=== PATIENT | male | born 1985 | race American Indian/Alaskan Native ===

== ENCOUNTER 2018-03-23 20:40 | Emergency (ER) | payer MEDICAID, OTHER, SELFPAY ==
[2018-03-23 20:44] VITALS: BP 128/73; PULSE 113; RESP 20; TEMP 36.3; O2SAT 99
--- NOTE | 2018-03-23 20:46 | ED_ITS ---
HPI - Overdose General Chief Complaint: Toxicology Problem Stated Complaint: Overdose Time Seen by Provider: 03/23/18 20:50 Source: EMS Mode of arrival: EMS History of Present Illness HPI Narrative: Patient is a 33-year-old male who presents after overdose. He does have a history of heroin used. Please to give him full nasal Narcan, EMS and gave him half a dose. He is now shaking cold awake alert and talking. Adamantly denies any drug use. Previous overdose noted 11/02/2017 he similar situation Related Data Home Medications Medication Instructions Recorded Confirmed No Known Home Medications 11/02/17 11/02/17 Allergies Allergy/AdvReac Type Severity Reaction Status Date / Time tramadol Allergy Intermediate Hives Verified 11/02/17 19:02 Review of Systems Review of Systems GENERAL: + chills denies any fever HEENT: Denies sinus pain, ear pain, sore throat, difficulty swallowing, neck pain RESPIRATORY: Denies dyspnea, cough, wheezing, hemoptysis, sputum. CARDIOVASCULAR: Denies chest pain, palpitations, orthopnea, edema GASTROINTESTINAL: Denies nausea, vomiting, abdominal pain, diarrhea, constipation, melena. : Denies dysuria, frequency, incontinence, hematuria, urinary retention, flank pain. MUSCULOSKELETAL: Denies weakness, joint pain, or bony pain SKIN: No rash, no erythema, no pruritus NEUROLOGIC: Shaking PSYCHIATRIC: No concerning psychosocial issues. 12 point review of systems is negative except for those stated above and HPI PFSH Social History Smoking Status: Current some day smoker Exam Initial Vital Signs Initial Vital Signs: Vital Signs Temperature 97.4 F L 03/23/18 20:44 Pulse Rate 113 H 03/23/18 20:44 Respiratory Rate 20 03/23/18 20:44 Blood Pressure 128/73 03/23/18 20:44 Pulse Oximetry 99 03/23/18 20:44 GENERAL: Awake alert shaking HEENT: Head atraumatic,EOMI, pupils reactive, face symmetric, CARDIOVASCULAR: Regular rate and rhythm without murmurs, rubs or gallops. RESPIRATORY: Breath sounds equal bilaterally, no wheezes rales or rhonchi. ABDOMEN: Soft, nontender. Normoactive bowel sounds all 4 quadrants. No guarding or rebound. EXTREMITIES: Normal range of motion, no clubbing or edema. Neurovascularly intact NEUROLOGICAL: Awake alert still mildly confused following commands shivering SKIN: No track alfaro Course Orders Ordered: ED Orders 03/23/18 21:38 Acetaminophen Stat Complete Blood Count AUTO DIFF Stat Comprehensive Metabolic Panel Stat Ethanol (ETOH) Stat Salicylate Stat Vital Signs - 8 hr 03/23/18 21:30 03/24/18 00:20 Pulse Rate 103 H 88 Respiratory Rate 14 21 Blood Pressure 110/69 Blood Pressure [Right Arm] 119/75 Pulse Oximetry 95 99 MDM - Overdose Lab Data Attestation: I reviewed the patient's lab results. Result diagrams: 03/23/18 21:38 03/23/18 21:38 Lab Results 03/23/18 03/23/18 Range/Units 21:38 21:38 WBC 21.0 H (4.5-11.0) X10^3/uL RBC 4.70 (4.5-5.9) X10^6/uL Hgb 12.9 L (13.5-17.5) g/dL Hct 38.4 L (41-53) % MCV 81.8 (80-100) fL MCH 27.5 (26-34) PG MCHC 33.6 (30-36) % RDW 14.2 (11.6-14.8) % Plt Count 274 (150-400) X10^3/uL Neut % (Auto) 91.2 H (50-75) % Lymph % (Auto) 3.5 L (25-40) % [place]ette % (Auto) 5.1 (3-14) % Eos % (Auto) 0.0 L (2-4) % Baso % (Auto) 0.2 (0-2) % Neut # (Auto) 13834 H (1424-6806) /uL Sodium 146 H (137-145) mmol/L Potassium 5.1 (3.4-5.1) mmol/L Chloride 104 (98-107) mmol/L Carbon Dioxide 32 (22-32) mmol/L BUN 14 (9-20) mg/dL Creatinine 1.50 H (0.66-1.25) mg/dL Estimated GFR 54.6 L (>60) mL/min BUN/Creatinine Ratio 9.3 (6-22) Glucose 60 L (70-100) mg/dL Calcium 9.2 (8.4-10.2) mg/dL Total Bilirubin 0.2 (0.2-1.3) mg/dL AST 36 (17-59) IU/L ALT 38 (21-72) IU/L Alkaline Phosphatase 60 (38-126) U/L Total Protein 7.8 (6.3-8.2) g/dL Albumin 4.6 (3.5-5.0) g/dL Globulin 3.2 (1.7-4.1) g/dL Albumin/Globulin Ratio 1.4 (1.0-2.8) Salicylates < 1.0 (<20) mg/dL Acetaminophen < 10 L (10-30) ug/mL Ethyl Alcohol < 10 mg/dL ECG Data Attestation: I personally reviewed and interpreted this ECG as follows: Prior ECG tracings: available for review Interpretation: Normal sinus rhythm rate [address] changes similar to previous EKG MDM Narrative Medical decision making narrative: Patient monitored in the ED. Managing his own airway drinking fluids. His was actually in the room when he received his discharge papers when she passed out. He now admits to snorting oxycodone which he thinks may be laced with fentanyl. States he will go to rehab tomorrow. Discharge Plan Departure Patient Disposition: Home Clinical Impression: Opioid overdose Discharge Date/Time: 03/24/18 00:39 Interventions: ED Discharge Assessment Last Done: 03/24/18 00:20 Instructions: DI for Drug Abuse and Drug Addiction Activity Restrictions/Additional Instructions: *You have been diagnosed with opiate overdose *What to do: Opiate addiction overdose can cause *Continue to take medications as directed *Follow up with your primary care provider in 2-3 days *Return to ER if you should have any new, worsening or concerning symptoms Prescriptions: No Action No Known Home Medications RF: 0
[2018-03-23 20:47] VITALS: BP 128/73; PULSE 113; RESP 20; TEMP 36.3; O2SAT 99
[2018-03-23 21:30] VITALS: BP 119/75; PULSE 103; RESP 14; O2SAT 95
[2018-03-23 21:49] LABS: Add Manual Diff / Slide Review NO; Basophils Percent Auto 0.2 % (0-2); Hematocrit 38.4 % (41-53); Hemoglobin 12.9 g/dL (13.5-17.5); Lymphocytes Percent Auto 3.5 % (25-40); Mean Corpuscular HGB Conc 33.6 % (30-36); Mean Corpuscular Hemoglobin 27.5 PG (26-34); Mean Corpuscular Volume 81.8 fL (80-100); Monocytes Percent Auto 5.1 % (3-14); Neutrophils Absolute Auto 19100 /uL (3000-5900); Neutrophils Percent Auto 91.2 % (50-75); Platelet Count 274 X10^3/uL (150-400); Red Cell Distribution Width 14.2 % (11.6-14.8)
[2018-03-23 21:59] LABS: Acetaminophen < 10 ug/mL (10-30); Alanine Aminotransferase 38 IU/L (21-72); Albumin 4.6 g/dL (3.5-5.0); Albumin Globulin Ratio 1.4 (1.0-2.8); Alkaline Phosphatase 60 U/L (38-126); Aspartate Aminotransferase 36 IU/L (17-59); BUN Creatinine Ratio 9.3 (6-22); Bilirubin Total 0.2 mg/dL (0.2-1.3); Blood Urea Nitrogen 14 mg/dL (9-20); Calcium 9.2 mg/dL (8.4-10.2); Carbon Dioxide 32 mmol/L (22-32); Chloride 104 mmol/L (98-107); Estimated Glomerular Filt Rate 54.6 mL/min (>60); Ethanol (ETOH) < 10 mg/dL; Globulin 3.2 g/dL (1.7-4.1); Glucose 60 mg/dL (70-100); HEMOLYSIS < 15 (0-50); Potassium 5.1 mmol/L (3.4-5.1); Sodium 146 mmol/L (137-145); Total Protein 7.8 g/dL (6.3-8.2)
[2018-03-23 22:01] LABS: Salicylate < 1.0 mg/dL (<20)
[2018-03-24 00:20] VITALS: BP 110/69; PULSE 88; RESP 21; O2SAT 99
== END 2018-03-24 00:39 | disposition home or self-care (01) ==
PROVIDERS: Emergency Provider Emergency Medicine; PCP Family Medicine
DX: T40.2X1A Poisoning by other opioids, accidental (unintentional), initial encounter (principal)
CPT/HCPCS: 36415; 80053; 80320; 80329; 85025; 93005; 99282; 99284; G0480

== ENCOUNTER 2019-09-30 02:11 | Emergency (ER) | payer MEDICAID, OTHER, SELFPAY ==
[2019-09-30 02:18] VITALS: BP 139/84; PULSE 94; RESP 16; TEMP 36.6; O2SAT 97
[2019-09-30] MEDS: SODIUM CHLORIDE 0.9% 1,000 ML 1000 ML IV (02:24)
--- NOTE | 2019-09-30 02:33 | ED.OVERDOSE ---
HPI - Overdose General Chief Complaint: Toxicology Problem Stated Complaint: Overdose Time Seen by Provider: 09/30/19 02:24 Source: patient and EMS Mode of arrival: EMS Limitations: no limitations History of Present Illness HPI Narrative: This is a 34-year-old male who comes in for overdose. Patient is not very forthcoming with history but per EMS they had been taking Percocet him and his . Per EMS they were told by the patient that it was for recreational purposes and they took 1 tablet and would wait 20 minutes did notice a change and then take an additional tablet, the patient cannot tell me how long this was going on for or how many tablets they took. Patient received 24 mg of Narcan from law enforcement at the scene. He is alert, oriented for EMS and myself. Patient denies any intent to harm himself. He does state that it was for recreational purposes. Patient denies any other medical history. Denies any surgeries. Denies any regular medications. Denies allergies but states allergic to tramadol in the EMR. Patient denies any other ingestion such as alcohol or other illicit drugs. Related Data Home Medications Medication Instructions Recorded Confirmed No Known Home Medications 11/02/17 11/02/17 Allergies Allergy/AdvReac Type Severity Reaction Status Date / Time tramadol Allergy Intermediate Hives Verified 11/02/17 19:02 Review of Systems Review of Systems ROS Unobtainable: All systems reviewed & are unremarkable except as noted in HPI and below Patient History Social History Smoking Status: Former smoker Smoking Status: Former smoker Substance Use Type: marijuana and opiates Exam Narrative Exam Narrative: GEN: well nourished, well appearing male, alert and oriented x 3, patient appears to be in mild distress. HEENT: Atraumatic, pupils are equal round reactive to light, extraocular movements are intact, nares are clear. Throat is clear without any exudates, erythema, tonsillar enlargement or uvular deviation HEART: Regular rate and rhythm without murmur, clicks, rubs. Pulses are equal in upper extremities LUNGS:Lungs clear to auscultation, no wheezes, rales, crackles, chest moves symmetrically, no tachypnea accessory muscle use. ABD:bowel sounds normal, soft, non-tender, no guarding, rebound, rigidity, no masses noted, no hepatosplenomegaly MSCL: Non-tender, no muscle atrophy, muscles strength 5/5 upper and lower extremities, full range of motion. NEURO:CN 2-12 intact, sensation normal. SKIN: No rash, erythema or skin changes. Initial Vital Signs Initial Vital Signs: Vital Signs Temperature 97.9 F 09/30/19 02:18 Pulse Rate 94 H 09/30/19 02:18 Respiratory Rate 16 09/30/19 02:18 Blood Pressure 139/84 09/30/19 02:18 Pulse Oximetry 97 09/30/19 02:18 Course Orders Ordered: ED Orders 09/30/19 EKG-12 Lead Stat 09/30/19 02:20 Acetaminophen Stat Complete Blood Count AUTO DIFF Stat Comprehensive Metabolic Panel Stat Ethanol (ETOH) Stat Hepatic (Liver) Panel Stat Salicylate Stat 09/30/19 02:24 Urine Drug Screen, Rapid Stat 09/30/19 02:45 Lactate (Lactic Acid) Stat Discontinued Medications Sodium Chloride (Normal Saline 0.9%) 1,000 mls @ 1,000 mls/hr IV BOLUS ONE Stop: 09/30/19 03:23 Ondansetron HCl (Zofran) 4 mg IV NOW ONE Stop: 09/30/19 02:25 Vital Signs Vital signs: Vital Signs - 8 hr 09/30/19 02:18 09/30/19 02:46 09/30/19 03:05 Temperature 97.9 F Pulse Rate 94 H 94 H 87 Respiratory Rate 16 17 18 Blood Pressure 139/84 Blood Pressure [Left Arm] 116/68 118/66 Pulse Oximetry 97 97 96 09/30/19 03:19 09/30/19 03:39 09/30/19 04:37 Temperature Pulse Rate 83 84 84 Respiratory Rate 17 15 17 Blood Pressure Blood Pressure [Left Arm] 118/66 110/62 118/61 Pulse Oximetry 97 94 97 MDM - Overdose Lab Data Attestation: I reviewed the patient's lab results. Result diagrams: 09/30/19 02:20 09/30/19 02:20 Labs: Lab Results 09/30/19 09/30/19 09/30/19 Range/Units 02:20 02:20 02:45 WBC 6.9 (4.5-11.0) X10^3/uL RBC 4.48 L (4.5-5.9) X10^6/uL Hgb 12.0 L (13.5-17.5) g/dL Hct 36.1 L (41-53) % MCV 80.4 (80-100) fL MCH 26.7 (26-34) PG MCHC 33.2 (30-36) % RDW 14.3 (11.6-14.8) % Plt Count 323 (150-400) X10^3/uL Neut % (Auto) 56.8 (50-75) % Lymph % (Auto) 32.1 (25-40) % Caroline % (Auto) 5.9 (3-14) % Eos % (Auto) 4.2 H (2-4) % Baso % (Auto) 1.0 (0-2) % Neut # (Auto) 3900 (6958-4379) /uL Lymph # (Auto) 2200 (6364-8871) /uL Caroline # (Auto) 400 (0-900) /uL Eos # (Auto) 300 (0-450) /uL Baso # (Auto) 100 (0-100) /uL Sodium 142 (137-145) mmol/L Potassium 3.8 (3.4-5.1) mmol/L Chloride 106 (98-107) mmol/L Carbon Dioxide 27 (22-32) mmol/L BUN 19 (9-20) mg/dL Creatinine 1.26 H (0.66-1.25) mg/dL Estimated GFR > 60.0 (>60) mL/min BUN/Creatinine Ratio 15.1 (6-22) Glucose 105 H (70-100) mg/dL Lactate 1.2 (0.7-2.1) mmol/L Calcium 8.8 (8.4-10.2) mg/dL Total Bilirubin 0.2 (0.2-1.3) mg/dL Conjugated Bilirubin 0.0 (0.0-0.3) md/dL Unconjugated Bilirubin 0.0 (0.0-1.1) mg/dL AST 28 (17-59) IU/L ALT 22 (<50) IU/L Alkaline Phosphatase 68 (38-126) U/L Total Protein 7.8 (6.3-8.2) g/dL Albumin 4.3 (3.5-5.0) g/dL Globulin 3.5 (1.7-4.1) g/dL Albumin/Globulin Ratio 1.2 (1.0-2.8) Salicylates < 1.0 (<20) mg/dL Acetaminophen < 10 L (10-30) ug/mL Ethyl Alcohol < 10 ( - 10) mg/dL ECG Data Attestation: I personally reviewed and interpreted this ECG as follows: Prior ECG tracings: available for review Interpretation: Sinus rhythm rate 89 P are 152 QRS of 108 QTC of 433. Patient does have Q-waves in [address] elevation appreciated. Inverted T-wave in lead 3. Patient has a prior EKG from 03/23/2018 with similar appearing EKG changes MDM Narrative Medical decision making narrative: Patient comes in with anemia with a hemoglobin of 12, white count is normal. Hemoglobin appears stable. Platelets are normal. Eosinophils are elevated. Creatinine is 1.26 all those appears improved from 2018 when he was 1.4 and 1.5 respectively. Electrolytes are otherwise normal, glucose is 105. Normal lactate, normal LFTs. Patient salicylate, Tylenol and alcohol are all negative. Discussed with patient lab findings, we discussed that he should follow up. He is is alert has been for quite some time with no decrease in his mental status. He did follow with Dr. Torres through the [facility], Dr. Torres has retired but he can re-establish with the clinic. Patient and I discussed long-term ramifications if he continues to have decreased renal function is he is quite young. Also offered options for addiction treatment and drug overdose. Discharge Plan Departure Patient Disposition: Home Clinical Impression: Overdose Qualifiers: Encounter type: initial encounter Injury intent: accidental or unintentional Qualified Code(s): T50.901A - Poisoning by unspecified drugs, medicaments and biological substances, accidental (unintentional), initial encounter Chronic kidney disease Qualifiers: Chronic kidney disease stage: unspecified stage Qualified Code(s): N18.9 - Chronic kidney disease, unspecified Instructions: DI for Drug Overdose in Adults Activity Restrictions/Additional Instructions: I would recommend that you follow-up for addiction counseling for assistance with drug abuse. Your labs show or kidney function is not normal and you should follow-up with a primary care physician either through the [facility] or you may follow-up with primary care here locally at [facility]. You should discuss this with the physician as they will wish to continue to monitor your kidney function and may place you on medication. Return to the ER for fevers, shortness of breath, chest pain or pressure, persistent vomiting, passing out, black or bloody stools or other new or concerning symptoms. Prescriptions: No Action No Known Home Medications RF: 0 Referrals: [facility] [Outside] Reno Torres MD [Non-Staff] -
[2019-09-30 02:39] LABS: Add Manual Diff / Slide Review NO; Basophils Absolute Auto 100 /uL (0-100); Eosinophils Absolute Auto 300 /uL (0-450); Eosinophils Percent Auto 4.2 % (2-4); Hematocrit 36.1 % (41-53); Lymphocytes Absolute Auto 2200 /uL (1100-4500); Lymphocytes Percent Auto 32.1 % (25-40); Mean Corpuscular HGB Conc 33.2 % (30-36); Mean Corpuscular Hemoglobin 26.7 PG (26-34); Mean Corpuscular Volume 80.4 fL (80-100); Monocytes Absolute Auto 400 /uL (0-900); Monocytes Percent Auto 5.9 % (3-14); Neutrophils Absolute Auto 3900 /uL (1500-7000); Neutrophils Percent Auto 56.8 % (50-75); Platelet Count 323 X10^3/uL (150-400); Red Blood Cell Count 4.48 X10^6/uL (4.5-5.9); Red Cell Distribution Width 14.3 % (11.6-14.8); White Blood Cell Count 6.9 X10^3/uL (4.5-11.0)
[2019-09-30 02:46] VITALS: BP 116/68; PULSE 94; RESP 17; O2SAT 97
--- NOTE | 2019-09-30 02:48 | PC.NURSE ---
Patient arrives via EMS for possible percocet overdose, pt reported to EMS that he and his took unknown amount of percocet to have fun by taking a tablet then waiting 20 minutes didn't feel different and took another one and repeating. EMS was called by someone in household that had been in another room and entered room to find pt and unresponsive, called police and police gave pt 24mg of Narcan PT at scene. Pt denies any difficulty breathing is alert, oriented able to follow directions however is a poor historian stating I don't know to most assessment questions regarding the overdose. Pt denies suicidal ideation.
[2019-09-30 02:50] LABS: Acetaminophen < 10 ug/mL (10-30); Alanine Aminotransferase 22 IU/L (<50); Albumin 4.3 g/dL (3.5-5.0); Albumin Globulin Ratio 1.2 (1.0-2.8); Alkaline Phosphatase 68 U/L (38-126); Aspartate Aminotransferase 28 IU/L (17-59); BUN Creatinine Ratio 15.1 (6-22); Bilirubin Total 0.2 mg/dL (0.2-1.3); Blood Urea Nitrogen 19 mg/dL (9-20); Calcium 8.8 mg/dL (8.4-10.2); Carbon Dioxide 27 mmol/L (22-32); Chloride 106 mmol/L (98-107); Estimated Glomerular Filt Rate > 60.0 mL/min (>60); Ethanol (ETOH) < 10 mg/dL; Globulin 3.5 g/dL (1.7-4.1); Glucose 105 mg/dL (70-100); HEMOLYSIS < 15 (0-50); Potassium 3.8 mmol/L (3.4-5.1); Salicylate < 1.0 mg/dL (<20); Sodium 142 mmol/L (137-145); Total Protein 7.8 g/dL (6.3-8.2)
[2019-09-30 02:59] LABS: Lactate (Lactic Acid) 1.2 mmol/L (0.7-2.1)
[2019-09-30 03:05] VITALS: BP 118/66; PULSE 87; RESP 18; O2SAT 96
[2019-09-30 03:19] VITALS: BP 118/66; PULSE 83; RESP 17; O2SAT 97
[2019-09-30 03:39] VITALS: BP 110/62; PULSE 84; RESP 15; O2SAT 94
--- NOTE | 2019-09-30 04:30 | PC.NURSE ---
PT awaiting ride from family member to [place].
[2019-09-30 04:37] VITALS: BP 118/61; PULSE 84; RESP 17; O2SAT 97
== END 2019-09-30 06:27 | disposition home or self-care (01) ==
PROVIDERS: Emergency Provider Emergency Medicine
DX: T50.901A Poisoning by unspecified drugs, medicaments and biological substances, accidental (unintentional), initial encounter (principal); N18.9 Chronic kidney disease, unspecified; D64.9 Anemia, unspecified
CPT/HCPCS: 36415; 80053; 80076; 80320; 80329; 83605; 85025; 93005; 96360; 99285; 99291; 99292; G0480

== ENCOUNTER 2019-12-17 04:14 | Observation (INO) | payer MEDICAID, OTHER, SELFPAY ==
[2019-12-17] VITALS (11 sets, daily range): BP systolic 76–120; BP diastolic 51–75; PULSE 68–126; RESP 11–25; TEMP 36.4–37.5; O2SAT 95–98; BMI 26.6
--- NOTE | 2019-12-17 04:26 | ED.NAVMDI ---
HPI - Nausea/Vomiting/Diarrhea General Chief complaint: Toxicology Problem Stated complaint: Vomiting Time Seen by Provider: 12/17/19 04:15 Source: patient, family and EMS Mode of arrival: EMS Limitations: no limitations History of Present Illness HPI Narrative: 34-year-old male former smoker without chronic medical history presents by EMS for evaluation of multiple episodes of vomiting this evening. He went to sleep in his normal state of health and took a oxy 30 mg before going to sleep. He woke up feeling panicked, started hyperventilating and vomited a few times and then a family member gave him intranasal Narcan. On arrival paramedics found him alert and oriented but tachycardic with a heart rate in the 160s. By his arrival heart rate had improved to 120. He denies any medication or dietary change. He denies any exposure to ill persons. He denies any other illicit drug use. He had no bloody emesis MD complaint: nausea and vomiting Onset (ago): hour(s) Description of Vomiting: food contents and watery Description of Diarrhea: none Associated Abdominal Pain: No Relieving factors: none Exacerbating factors: none Associated symptoms: denies other symptoms Related Data Home Medications Medication Instructions Recorded Confirmed No Known Home Medications 11/02/17 12/17/19 Allergies Allergy/AdvReac Type Severity Reaction Status Date / Time tramadol Allergy Intermediate Hives Verified 11/02/17 19:02 Review of Systems Constitutional Constitutional: Denies chills, Denies fatigue, Denies fever(s), Denies frequent falls, Denies lethargy and Denies weakness Eyes Eyes: Denies change in vision, Denies eye discharge, Denies irritation and Denies loss of vision ENT Ears, Nose, Mouth, and Throat: Denies change in voice, Denies dizziness, Denies neck pain, Denies sore throat and Denies throat swelling Cardiovascular Cardiovascular: Denies chest pain, Denies irregular heart rhythm, Denies lightheadedness, Denies palpitations, Denies dyspnea, Denies dyspnea on exertion and Denies orthopnea Respiratory Respiratory: Denies cough, Denies dyspnea, Denies dyspnea on exertion and Denies wheezing Gastrointestinal Gastrointestinal: Denies abdominal pain, Denies change in bowel habits, Denies diarrhea, Reports nausea and Reports vomiting Musculoskeletal Musculoskeletal: Denies neck pain and Denies numbness Integumentary/Breasts Skin/Breast: Denies pruritus, Denies erythema, Denies rash and Denies wounds Neurologic Neurologic: Denies behavioral changes, Denies confusion, Denies dizziness, Denies frequent falls, Denies loss of vision, Denies numbness and Denies weakness Psychiatric Psychiatric: Denies anxiety, Denies behavioral changes, Denies confusion, Denies depression, Denies homicidal ideation and Denies suicidal ideation Endocrine Endocrine: Denies fatigue, Denies flushing and Denies palpitations Hematologic/Lymphatic Hematologic/Lymphatic: Denies easy bruising Allergic/Immunologic Allergic/Immunologic: Denies urticaria, Denies throat swelling and Denies wheezing Patient History Medical History Chronic kidney disease, stage 3 (Acute) Substance use disorder (Acute) Family History Mother Healthy adult Father Healthy adult Social History household members: spouse Smoking Status: Former smoker alcohol intake: current Smoking Status: Former smoker Substance Use Type: marijuana and opiates Exam Narrative Exam Narrative: GENERAL: [34] year old patient appears stated age. Well-nourished, well-developed patient, in mild distress. HEAD: Atraumatic. Normocephalic. EYES: Pupils equal round and reactive. Extraocular motions intact. No scleral icterus. No injection or drainage. ENT: Nose without bleeding, purulent drainage. Throat without erythema, tonsillar hypertrophy or exudate. Airway patent. NECK: Trachea midline. Non tender CARDIOVASCULAR: Tachycardic rate and regular rhythm without murmurs, gallops, or rubs. RESPIRATORY: Clear to auscultation. Breath sounds equal bilaterally. No wheezes, rales, or rhonchi. GASTROINTESTINAL: Abdomen soft, non-tender, nondistended. EXTREMITIES: No edema or joint tenderness. BACK: Nontender without deformity or crepitance. No flank tenderness. NEURO: AOx3. SKIN: No rash or erythema of visible areas Initial Vital Signs Initial Vital Signs: Vital Signs Temperature 99.5 F 12/17/19 04:20 Pulse Rate 126 H 12/17/19 04:20 Respiratory Rate 14 12/17/19 04:20 Blood Pressure 105/61 12/17/19 04:20 Pulse Oximetry 97 12/17/19 04:20 Course Course Course Narrative: patient felt fine before going to sleep and awoke with multiple episodes of painless vomiting. HR is improving with fluids, but BP is now in upper 70s and low 80s. He is unchanged with orthostatics, but did feel a bit dizzy on standing. His initial creatinine was elevated at 1.8 (up from 1.2 last time here). Labs repeated after 2nd liter of fluid. Orders Ordered: Acetaminophen (Tylenol) 650 mg PO Q6HR PRN PRN Reason: Fever/Mild Pain (1-3) Al Hydrox/Mg Hydrox/Simethicone (Maalox Plus) 30 ml PO Q6HR PRN PRN Reason: Dyspepsia Bisacodyl (Dulcolax) 10 mg SD DAILY PRN PRN Reason: Constipation Calcium Carbonate (Tums) 1,000 mg PO Q4HR PRN PRN Reason: Dyspepsia Heparin Sodium (Porcine) (Heparin) 5,000 unit SUBCUT BID [facility] Last Admin: 12/17/19 21:16 Dose: 5,000 unit Documented by: TISH Magnesium Hydroxide (Milk Of Magnesia) 30 ml PO DAILY PRN PRN Reason: Constipation Naloxone HCl (Narcan) 0.2 mg IV Q2MIN PRN PRN Reason: Opiate Reversal Ondansetron HCl (Zofran) 4 mg IV Q4HR [facility] Last Admin: 12/18/19 01:29 Dose: Not Given Documented by: Admin: 12/17/19 21:16 Dose: Not Given Documented by: Admin: 12/17/19 17:02 Dose: 4 mg Documented by: TISH Pantoprazole Sodium (Protonix) 40 mg PO 0600 [facility] Last Admin: 12/17/19 15:11 Dose: 40 mg Documented by: JONATHAN Sodium Chloride (Normal Saline 0.9% Flush) 10 ml IV BID [facility] Discontinued Medications Sodium Chloride (Normal Saline 0.9%) 1,000 mls @ 1,000 mls/hr IV BOLUS ONE Stop: 12/17/19 05:24 Last Infusion: 12/17/19 05:24 Dose: 0 mls/hr Documented by: Admin: 12/17/19 04:30 Dose: 1,000 mls/hr Documented by: MERA Sodium Chloride (Normal Saline 0.9%) 1,000 mls @ 1,000 mls/hr IV BOLUS ONE Stop: 12/17/19 06:10 Last Infusion: 12/17/19 06:21 Dose: 0 mls/hr Documented by: Admin: 12/17/19 05:24 Dose: 1,000 mls/hr Documented by: MERA Sodium Chloride (Normal Saline 0.9%) 1,000 mls @ 1,000 mls/hr IV BOLUS ONE Stop: 12/17/19 06:54 Last Infusion: 12/17/19 07:20 Dose: 0 mls/hr Documented by: Admin: 12/17/19 06:20 Dose: 1,000 mls/hr Documented by: MERA Sodium Chloride (Normal Saline 0.9%) 1,000 mls @ 1,000 mls/hr IV BOLUS ONE Stop: 12/17/19 09:12 Last Admin: 12/17/19 09:23 Dose: 1,000 mls/hr Documented by: CPETRIC Dextrose/Lactated Ringer's (Dextrose 5%-Lactated Ringers) 1,000 mls @ 100 mls/hr IV CONT WHITNEY Last Infusion: 12/17/19 19:19 Dose: 0 mls/hr Documented by: Admin: 12/17/19 10:31 Dose: 100 mls/hr Documented by: ANGIEFARL Ondansetron HCl (Zofran) 4 mg IV Q4HR PRN PRN Reason: Nausea And Vomiting Ondansetron HCl (Zofran) 4 mg IV Q8HR PRN PRN Reason: Nausea And Vomiting Pantoprazole Sodium (Protonix) 20 mg PO 0600 WHITNEY Pantoprazole Sodium (Protonix) 40 mg PO 0600 [facility] Vital Signs Vital signs: Vital Signs - 8 hr 12/17/19 04:20 12/17/19 05:32 12/17/19 06:34 Temperature 99.5 F Pulse Rate 126 H 110 H Pulse Rate [Orthostatic Lying] 114 H Pulse Rate [Orthostatic Sitting] 116 H Pulse Rate [Orthostatic Standing] 114 H Respiratory Rate 14 11 L Blood Pressure 105/61 Blood Pressure [Orthostatic Lying] 86/51 L Blood Pressure [Orthostatic Sitting] 83/56 L Blood Pressure [Orthostatic Standing] 85/52 L Blood Pressure [Right Arm] 88/52 L Pulse Oximetry 97 97 MDM - Nausea/Vomiting/Diarrhea Lab Data Result diagrams: 12/17/19 06:35 12/17/19 06:35 Labs: Lab Results 12/17/19 12/17/19 12/17/19 Range/Units 04:38 04:38 04:38 WBC 18.8 H (4.5-11.0) X10^3/uL RBC 4.71 (4.5-5.9) X10^6/uL Hgb 12.7 L (13.5-17.5) g/dL Hct 38.2 L (41-53) % MCV 81.2 (80-100) fL MCH 26.9 (26-34) PG MCHC 33.2 (30-36) % RDW 14.5 (11.6-14.8) % Plt Count 270 (150-400) X10^3/uL Neut % (Auto) 88.6 H (50-75) % Lymph % (Auto) 3.4 L (25-40) % [place] % (Auto) 7.6 (3-14) % Eos % (Auto) 0.1 L (2-4) % Baso % (Auto) 0.3 (0-2) % Neut # (Auto) 91392 H (6538-5370) /uL Lymph # (Auto) 600 L (4372-5874) /uL [place] # (Auto) 1400 H (0-900) /uL Eos # (Auto) 0 (0-450) /uL Baso # (Auto) 100 (0-100) /uL Sodium 139 (137-145) mmol/L Potassium 3.8 (3.4-5.1) mmol/L Chloride 104 (98-107) mmol/L Carbon Dioxide 26 (22-32) mmol/L BUN 19 (9-20) mg/dL Creatinine 1.80 H (0.66-1.25) mg/dL Estimated GFR 43.9 L (>60) mL/min BUN/Creatinine Ratio 10.6 (6-22) Glucose 70 (70-100) mg/dL Lactate (0.7-2.1) mmol/L Calcium 8.7 (8.4-10.2) mg/dL Magnesium (1.6-2.3) mg/dL Procalcitonin (<0.5) ng/mL Salicylates < 1.0 (<20) mg/dL Acetaminophen < 10 L (10-30) ug/mL 12/17/19 12/17/19 12/17/19 Range/Units 06:35 06:35 06:35 WBC 14.2 H (4.5-11.0) X10^3/uL RBC 4.32 L (4.5-5.9) X10^6/uL Hgb 11.7 L (13.5-17.5) g/dL Hct 34.9 L (41-53) % MCV 80.8 (80-100) fL MCH 27.1 (26-34) PG MCHC 33.6 (30-36) % RDW 14.4 (11.6-14.8) % Plt Count 265 (150-400) X10^3/uL Neut % (Auto) 90.4 H (50-75) % Lymph % (Auto) 2.7 L (25-40) % [place] % (Auto) 6.2 (3-14) % Eos % (Auto) 0.0 L (2-4) % Baso % (Auto) 0.7 (0-2) % Neut # (Auto) 86684 H (9129-8182) /uL Lymph # (Auto) 400 L (0479-7804) /uL [place] # (Auto) 900 (0-900) /uL Eos # (Auto) 0 (0-450) /uL Baso # (Auto) 100 (0-100) /uL Sodium (137-145) mmol/L Potassium (3.4-5.1) mmol/L Chloride (98-107) mmol/L Carbon Dioxide (22-32) mmol/L BUN (9-20) mg/dL Creatinine 1.55 H (0.66-1.25) mg/dL Estimated GFR 52.2 L (>60) mL/min BUN/Creatinine Ratio (6-22) Glucose (70-100) mg/dL Lactate (0.7-2.1) mmol/L Calcium (8.4-10.2) mg/dL Magnesium 2.1 (1.6-2.3) mg/dL Procalcitonin (<0.5) ng/mL Salicylates (<20) mg/dL Acetaminophen (10-30) ug/mL 06/18/20 06/18/20 Range/Units 07:00 08:11 WBC (4.5-11.0) X10^3/uL RBC (4.5-5.9) X10^6/uL Hgb (13.5-17.5) g/dL Hct (41-53) % MCV (80-100) fL MCH (26-34) PG MCHC (30-36) % RDW (11.6-14.8) % Plt Count (150-400) X10^3/uL Neut % (Auto) (50-75) % Lymph % (Auto) (25-40) % [place] % (Auto) (3-14) % Eos % (Auto) (2-4) % Baso % (Auto) (0-2) % Neut # (Auto) (6683-0607) /uL Lymph # (Auto) (4366-2710) /uL [place] # (Auto) (0-900) /uL Eos # (Auto) (0-450) /uL Baso # (Auto) (0-100) /uL Sodium (137-145) mmol/L Potassium (3.4-5.1) mmol/L Chloride (98-107) mmol/L Carbon Dioxide (22-32) mmol/L BUN (9-20) mg/dL Creatinine (0.66-1.25) mg/dL Estimated GFR (>60) mL/min BUN/Creatinine Ratio (6-22) Glucose (70-100) mg/dL Lactate 2.1 (0.7-2.1) mmol/L Calcium (8.4-10.2) mg/dL Magnesium (1.6-2.3) mg/dL Procalcitonin 3.82 H (<0.5) ng/mL Salicylates (<20) mg/dL Acetaminophen (10-30) ug/mL [facility] Narrative Medical decision making narrative: 34-year-old male with slightly unclear story continues to be slightly tachycardic and hypotensive (in the 80s) after 3 L and is still yet to make urine. The etiology is unclear but is likely a combination of a slightly elevated baseline creatinine and in the setting of dehydration from the vomiting which is likely associated with Narcan administration in the aftermath and non intentional Percocet overdose. Patient requires hospitalization for further stabilization and evaluation of his condition. Hospitalist happy to accept Discharge Plan Departure Patient Disposition: Admitted as Observation Clinical Impression: Acute kidney injury, Acute dehydration, Accidental drug overdose Discharge Date/Time: 12/17/19 09:15 Admit Date/Time: 12/17/19 08:24 Admit Provider: Day Jara
[2019-12-17] MEDS: SODIUM CHLORIDE 0.9% 1,000 ML 1000 ML IV ×4 (04:30→09:23)
[2019-12-17 04:50] LABS: Add Manual Diff / Slide Review NO; Basophils Absolute Auto 100 /uL (0-100); Basophils Percent Auto 0.3 % (0-2); Eosinophils Absolute Auto 0 /uL (0-450); Eosinophils Percent Auto 0.1 % (2-4); Hematocrit 38.2 % (41-53); Hemoglobin 12.7 g/dL (13.5-17.5); Lymphocytes Absolute Auto 600 /uL (1100-4500); Lymphocytes Percent Auto 3.4 % (25-40); Mean Corpuscular HGB Conc 33.2 % (30-36); Mean Corpuscular Hemoglobin 26.9 PG (26-34); Mean Corpuscular Volume 81.2 fL (80-100); Monocytes Absolute Auto 1400 /uL (0-900); Monocytes Percent Auto 7.6 % (3-14); Neutrophils Absolute Auto 16600 /uL (1500-7000); Neutrophils Percent Auto 88.6 % (50-75); Platelet Count 270 X10^3/uL (150-400); Red Blood Cell Count 4.71 X10^6/uL (4.5-5.9); Red Cell Distribution Width 14.5 % (11.6-14.8); White Blood Cell Count 18.8 X10^3/uL (4.5-11.0)
[2019-12-17 04:59] LABS: BUN Creatinine Ratio 10.6 (6-22); Blood Urea Nitrogen 19 mg/dL (9-20); Calcium 8.7 mg/dL (8.4-10.2); Carbon Dioxide 26 mmol/L (22-32); Chloride 104 mmol/L (98-107); Estimated Glomerular Filt Rate 43.9 mL/min (>60); Glucose 70 mg/dL (70-100); HEMOLYSIS < 15 (0-50); Potassium 3.8 mmol/L (3.4-5.1); Sodium 139 mmol/L (137-145)
--- NOTE | 2019-12-17 05:18 | PC.NURSE ---
Pt refusing to answer questions in regards to what he took. Family member admitted patient normal takes Perc 30. Family member informed he was given narcan at home.
--- NOTE | 2019-12-17 05:33 | PC.NURSE ---
BP 88/52, Pt denies any dizziness or lightheadedness. Provider aware at this time.
[2019-12-17 06:47] LABS: Add Manual Diff / Slide Review NO; Basophils Absolute Auto 100 /uL (0-100); Basophils Percent Auto 0.7 % (0-2); Eosinophils Absolute Auto 0 /uL (0-450); Hematocrit 34.9 % (41-53); Hemoglobin 11.7 g/dL (13.5-17.5); Lymphocytes Absolute Auto 400 /uL (1100-4500); Lymphocytes Percent Auto 2.7 % (25-40); Mean Corpuscular HGB Conc 33.6 % (30-36); Mean Corpuscular Hemoglobin 27.1 PG (26-34); Mean Corpuscular Volume 80.8 fL (80-100); Monocytes Absolute Auto 900 /uL (0-900); Monocytes Percent Auto 6.2 % (3-14); Neutrophils Absolute Auto 12800 /uL (1500-7000); Neutrophils Percent Auto 90.4 % (50-75); Platelet Count 265 X10^3/uL (150-400); Red Blood Cell Count 4.32 X10^6/uL (4.5-5.9); Red Cell Distribution Width 14.4 % (11.6-14.8); White Blood Cell Count 14.2 X10^3/uL (4.5-11.0)
[2019-12-17 06:55] LABS: Estimated Glomerular Filt Rate 52.2 mL/min (>60)
[2019-12-17 08:23] LABS: Lactate (Lactic Acid) 2.1 mmol/L (0.7-2.1)
[2019-12-17 09:34] LABS: RBC Urine None Seen (0-5/HPF)
[2019-12-17 09:37] LABS: Appearance Urine UA CLEAR; Bilirubin Urine UA NEGATIVE (NEGATIVE); Color Urine UA YELLOW; Glucose Urine UA NEGATIVE (Negative); Ketones Urine UA NEGATIVE (NEGATIVE); Leukocyte Esterase Urine UA NEGATIVE (NEGATIVE); Nitrite Urine UA NEGATIVE (Negative); Occult Blood Urine UA TRACE-LYSED (Negative); Protein Urine UA TRACE (Negative); Urobilinogen Urine UA 0.2 E.U./dL (0.2); pH Urine UA 5.5 (4.5-8.0)
[2019-12-17 09:40] LABS: UR Morphine/Opiate cutoff 300 Negative (Negative); Ur Creatinine Normal (Normal); Ur Specific Gravity Normal (Normal); Urine Amphetamines Negative (Negative); Urine Barbiturates Negative (Negative); Urine Benzodiazepines Negative (Negative); Urine Cocaine Negative (Negative); Urine MDMA Negative (Negative); Urine Methadone Negative (Negative); Urine Methamphetamines Negative (Negative); Urine Oxycodone Negative (Negative); Urine Phencyclidine Negative (Negative); Urine Tetrahydrocannabinol Negative (Negative); Urine Tricyclic Antidepressant Negative (Negative); Urine pH Normal (Normal)
[2019-12-17 09:44] LABS: Amorphous Sediment Urine 2+; Bacteria Urine Occasional (0-1); Culture Indicated Urine Specimen Cultured; WBC Urine 0-1/HPF (0-5/HPF)
[2019-12-17 10:14] LABS: Procalcitonin 3.82 ng/mL (<0.5)
[2019-12-17] MEDS: DEXTROSE 5%-LACTATED RINGERS 1,000 ML 100 ML IV (10:31)
--- NOTE | 2019-12-17 11:34 | PC.NURSE ---
Patient admitted from ER to room 205, oriented to room and call light. Requested right away that he needed to urinate, voided in urinal and sent for UA as ordered. Patient denies pain, dizziness, n/v at this time. States he did vomit earlier in the ER, states his abdomen is tender. Currently resting in bed. Call light within reach.
--- NOTE | 2019-12-17 14:39 | PM.HP.1 ---
History of Present Illness History of Present Illness Date Patient Seen: 12/17/19 Chief complaint: Vomiting Narrative: Tahir Trujillo Jr is a 34-year-old male with a past medical history significant for chronic kidney disease stage 3 and opiate abuse who presented to the ED after he was unresponsive in require Narcan to arouse with subsequent nausea and vomiting. The patient reports he was in his usual state health when he took an oxycodone that he got on the street for a ?fun time.? His thought he was talking in his sleep and tried to arouse him when she found he was unarousable she administered nasal Narcan. The patient then became nauseous with severe vomiting and requested 911 to be called as he thought something was wrong. The patient arrived at the ED appeared severely dehydrated with continued nausea with intermittent vomiting. He was initially somnolent with hypotension likely drug-induced and received 4 L of NS boluses total with slow improvement in blood pressure. The patient endorses mild sore throat, mild dull chest pain and epigastric pain. He endorses hot and cold flashes but denies having fever or chills. He has no other symptoms of infection and denies headache, vision changes, rhinitis, nasal congestion, shortness of breath, significant abdominal pain, fever, chills, dysuria, diarrhea or constipation. He has no sick contacts. The patient reports that he has taken street oxycodone which had fentanyl in it previously. He denies IV drug use. Laboratory evaluation demonstrated leukocytosis at 18.8 improved with IV fluid hydration now 14.2 with a elevated procalcitonin of 3.82 and kidney injury with creatinine elevated to 1.8 improved with fluids now 1.55 and normal lactate at 2.1. Patient has mild abdominal pain diffusely but no signs of acute abdomen or localized pain. He has no skin rashes. He is afebrile. The patient does not appear to be infected clinically and no imaging modalities were pursued in ED. If patient continues to have severe abdominal pain with nausea and vomiting plan to consider abdominal imaging. Urinalysis did not appear infected. UDS was negative. Blood cultures drawn and pending. Patient will be admitted as observation for unintentional overdose, severe dehydration and acute kidney injury and plan to monitor for signs of infection and continue IV rehydration with advancement of diet as tolerated. Patient History Medical History Chronic kidney disease, stage 3 (Acute) Substance use disorder (Acute) Family & Social History Family History Mother Healthy adult Father Healthy adult Social History: household members spouse Prior Living Arrangements House Safety & Behavioral: Feels Safe in Current Yes Environment Been Physically Hurt or No Threatened By a Person Suicidal Ideation Description None Suicide Plan Description No Plan Tobacco & Substance use: Smoking Status Former smoker alcohol intake current alcohol intake frequency 12 pack of beer, few times a month Substance Use Type opiates Meds Home Medications and Allergies Home Medications Medication Instructions Recorded Confirmed Type No Known Home Medications 11/02/17 12/17/19 History Allergies Allergy/AdvReac Type Severity Reaction Status Date / Time tramadol Allergy Intermediate Hives Verified 11/02/17 19:02 Review of Systems Review of Systems Narrative: A 10 system comprehensive review of systems was conducted with the patient and found to be negative except as above in the History of Present Illness. Exam Vital Signs (past 8 hours): - 12/17/19 07:00 12/17/19 08:10 12/17/19 09:23 Temperature 99.1 F Pulse Rate 111 H 107 H 102 H Respiratory Rate 21 25 H 16 Blood Pressure 89/61 L Blood Pressure [Right Arm] 76/51 L 106/52 L Pulse Oximetry 96 96 98 12/17/19 09:53 12/17/19 12:27 Temperature 98.3 F Pulse Rate 82 Respiratory Rate 20 Blood Pressure 104/72 Blood Pressure [Right Arm] Pulse Oximetry 98 96 Oxygen Delivery Method Room Air Oxygen Flow Rate 0 Narrative Exam Narrative: General: Young male sitting in bed and in no acute distress, well-developed, well-nourished, appears nauseated but otherwise appropriately interactive HEENT: Normocephalic, atraumatic. External ears without defect. Pupils equal, round, and reactive to light. Anicteric sclerae, moist conjunctivae, and no lid lag. Oropharynx free of erythema and cobble stoning with moist mucosa. Neck: Supple with full range of motion. No jugular venous distension. No bruits. No lymphadenopathy or thyromegaly. Cardiovascular: Regular rate and rhythm without murmurs, rubs, or gallops appreciated Pulmonary: Clear to auscultation bilaterally without crackles, wheezes, or rhonchi. Normal respiratory effort with no use of accessory muscles. Abdomen: Soft, bowel sounds present, mild tenderness diffusely without focal tendeness, mild voluntary guarding, nondistended. No signs of acute abdomen. No hepatosplenomegaly or masses appreciated. Extremities: No clubbing, cyanosis, or edema. Skin: Normal temperature, turgor, and texture; no rash, ulcers, or subcutaneous nodules appreciated. Neurological: Cranial nerves grossly intact. Psychiatric: Normal mood and affect. Alert and oriented to person, place, and time. Objective Labs Result Diagrams: 12/17/19 06:35 12/17/19 06:35 Labs: Laboratory Results - last 24 hr 12/17/19 12/17/19 12/17/19 04:38 04:38 06:35 WBC 18.8 H 14.2 H RBC 4.71 4.32 L Hgb 12.7 L 11.7 L Hct 38.2 L 34.9 L MCV 81.2 80.8 MCH 26.9 27.1 MCHC 33.2 33.6 RDW 14.5 14.4 Plt Count 270 265 Neut % (Auto) 88.6 H 90.4 H Lymph % (Auto) 3.4 L 2.7 L [place] % (Auto) 7.6 6.2 Eos % (Auto) 0.1 L 0.0 L Baso % (Auto) 0.3 0.7 Neut # (Auto) 57052 H 66863 H Lymph # (Auto) 600 L 400 L [place] # (Auto) 1400 H 900 Eos # (Auto) 0 0 Baso # (Auto) 100 100 Sodium 139 Potassium 3.8 Chloride 104 Carbon Dioxide 26 BUN 19 Creatinine 1.80 H Estimated GFR 43.9 L BUN/Creatinine Ratio 10.6 Glucose 70 Lactate Calcium 8.7 Procalcitonin Urine Color Urine Appearance Urine pH Ur Specific [place] Urine Protein Urine Glucose (UA) Urine Ketones Urine Occult Blood Urine Nitrate Urine Bilirubin Urine Urobilinogen Ur Leukocyte Esterase Urine RBC Urine WBC Amorphous Sediment Urine Bacteria Ur Culture Indicated? U Opiates 300ng/mL cut Ur Oxycodone Screen Urine Methadone Screen Ur Barbiturates Screen U Tricyclic Antidepress Ur Phencyclidine Scrn Ur Amphetamines Screen U Methamphetamines Scrn Ur MDMA Scrn (Ecstasy) U Benzodiazepines Scrn Urine Cocaine Screen U Marijuana (THC) Screen 0612/17/19 12/17/19 06:35 07:00 08:11 WBC RBC Hgb Hct MCV MCH MCHC RDW Plt Count Neut % (Auto) Lymph % (Auto) [place] % (Auto) Eos % (Auto) Baso % (Auto) Neut # (Auto) Lymph # (Auto) [place] # (Auto) Eos # (Auto) Baso # (Auto) Sodium Potassium Chloride Carbon Dioxide BUN Creatinine 1.55 H Estimated GFR 52.2 L BUN/Creatinine Ratio Glucose Lactate 2.1 Calcium Procalcitonin 3.82 H Urine Color Urine Appearance Urine pH Ur Specific [place] Urine Protein Urine Glucose (UA) Urine Ketones Urine Occult Blood Urine Nitrate Urine Bilirubin Urine Urobilinogen Ur Leukocyte Esterase Urine RBC Urine WBC Amorphous Sediment Urine Bacteria Ur Culture Indicated? U Opiates 300ng/mL cut Ur Oxycodone Screen Urine Methadone Screen Ur Barbiturates Screen U Tricyclic Antidepress Ur Phencyclidine Scrn Ur Amphetamines Screen U Methamphetamines Scrn Ur MDMA Scrn (Ecstasy) U Benzodiazepines Scrn Urine Cocaine Screen U Marijuana (THC) Screen 12/17/19 12/17/19 09:25 09:25 WBC RBC Hgb Hct MCV MCH MCHC RDW Plt Count Neut % (Auto) Lymph % (Auto) [place] % (Auto) Eos % (Auto) Baso % (Auto) Neut # (Auto) Lymph # (Auto) [place] # (Auto) Eos # (Auto) Baso # (Auto) Sodium Potassium Chloride Carbon Dioxide BUN Creatinine Estimated GFR BUN/Creatinine Ratio Glucose Lactate Calcium Procalcitonin Urine Color Yellow Urine Appearance Clear Urine pH 5.5 Ur Specific [place] 1.020 Urine Protein Trace H Urine Glucose (UA) Negative Urine Ketones Negative Urine Occult Blood Trace-lysed Urine Nitrate Negative Urine Bilirubin Negative Urine Urobilinogen 0.2 Ur Leukocyte Esterase Negative Urine RBC None seen Urine WBC 0-1/hpf Amorphous Sediment 2+ Urine Bacteria Occasional (0-1) Ur Culture Indicated? Specimen cultured U Opiates 300ng/mL cut Negative Ur Oxycodone Screen Negative Urine Methadone Screen Negative Ur Barbiturates Screen Negative U Tricyclic Antidepress Negative Ur Phencyclidine Scrn Negative Ur Amphetamines Screen Negative U Methamphetamines Scrn Negative Ur MDMA Scrn (Ecstasy) Negative U Benzodiazepines Scrn Negative Urine Cocaine Screen Negative U Marijuana (THC) Screen Negative Assessment & Plan Assessment & Plan narrative: Tahir Trujillo Jr is a 34-year-old male with a past medical history significant for chronic kidney disease stage 3 and opiate abuse who presented to the ED after he was unresponsive in require Narcan to arouse with subsequent nausea and vomiting. 1. Unintentional overdose, present on admission. Resolved. -Patient took what he believes to be an oxycodone that he got on the street and when his tried to wake him yesterday evening he was unarousable and received Narcan the patient presented with nausea and vomiting. The patient appeared severely dehydrated with mild hypotension and somnolence that are likely drug-induced and improving with IV fluid hydration. -UDS interestingly was negative for opiates, oxycodone and methadone however, this is not a sensitive test and is dependent on dose and metabolism. Salicylate and acetaminophen levels negative. Patient may have possibly received fentanyl or another unknown substance in street drug. -Patient with leukocytosis 18.8 improved with IV fluids now 14.2 and elevated procalcitonin of 3.82 which are likely reactive and elevated due to stress response. Lactate normal at 2.1. Patient has mild abdominal discomfort diffusely but no signs of acute abdomen or localized pain. No rash. Afebrile. No clincial signs of infection. Urinalysis did not appear infected. UDS was negative. Blood cultures pending. Continue to closely monitor for signs/symptoms of infection, vital signs and telemetry. -Consulted [employer] for CD assessment and appreciate her time and recommendations. 2. Severe dehydration, secondary to nausea and vomiting, present on admission. Improving. -Received 4 L of NS boluses in the ED. Continue D5 normal saline at 100 mL/hr until able to take in PO intake normally. -Continue Zofran 4 mg every 4 hours as needed for nausea and vomiting. -The patient does not appear to be infected clinically and no imaging modalities were pursued in ED. If patient continues to have severe abdominal pain with nausea and vomiting low threshold for abdominal imaging. 3. Acute kidney injury on chronic kidney disease stage 3, present on admission. Improving -Initial creatinine 1.8. Baseline creatinine appears to be between 1.3-1.5. Repeat creatinine down to 1.55 with IV fluid hydration. -Avoid nephrotoxic agents. -Received 4 L of NS boluses in the ED. Continue D5 normal saline at 100 mL/hr until able to take in PO intake normally. -Continue to monitor renal function daily. Code status: Full code VTE prophylaxis: SQ Heparin Patient is admitted under observation status with expected length of stay less than 2 midnights due to severity of presenting symptoms, risk of adverse event, and complexity of treatment plan. Quality VTE Deep Vein Thrombosis/Pulmonary Embolism Present on Admission: No
[2019-12-17] MEDS: PANTOPRAZOLE 20 MG TABLET 40 MG PO (15:11)
[2019-12-17 15:24] LABS: Acetaminophen < 10 ug/mL (10-30); Salicylate < 1.0 mg/dL (<20)
[2019-12-17] MEDS: ONDANSETRON 4 MG/2 ML INJ IV (17:02)
[2019-12-17] MEDS: HEPARIN 5,000 UNIT/ML VIAL 5000 UNIT SUBCUT (21:16)
[2019-12-17 23:11] LABS: Magnesium 2.1 mg/dL (1.6-2.3)
[2019-12-18 05:00] VITALS: BP 135/66; PULSE 59; RESP 16; TEMP 36.7; O2SAT 95
--- NOTE | 2019-12-18 05:47 | PC.NURSE ---
HAND REAMER offered patient a shower at 0505. Patient refused and requested that shower be done later in the morning.
[2019-12-18 06:27] LABS: Add Manual Diff / Slide Review NO; Basophils Absolute Auto 100 /uL (0-100); Basophils Percent Auto 0.9 % (0-2); Eosinophils Absolute Auto 200 /uL (0-450); Eosinophils Percent Auto 2.7 % (2-4); Hematocrit 33.1 % (41-53); Hemoglobin 11.3 g/dL (13.5-17.5); Lymphocytes Absolute Auto 2200 /uL (1100-4500); Lymphocytes Percent Auto 26.2 % (25-40); Mean Corpuscular Hemoglobin 27.5 PG (26-34); Mean Corpuscular Volume 80.6 fL (80-100); Monocytes Absolute Auto 600 /uL (0-900); Monocytes Percent Auto 7.2 % (3-14); Neutrophils Absolute Auto 5200 /uL (1500-7000); Platelet Count 247 X10^3/uL (150-400); Red Cell Distribution Width 14.7 % (11.6-14.8); White Blood Cell Count 8.3 X10^3/uL (4.5-11.0)
[2019-12-18 06:33] LABS: Alanine Aminotransferase 19 IU/L (<50); Albumin 3.2 g/dL (3.5-5.0); Albumin Globulin Ratio 1.1 (1.0-2.8); Alkaline Phosphatase 46 U/L (38-126); Aspartate Aminotransferase 31 IU/L (17-59); BUN Creatinine Ratio 13.9 (6-22); Bilirubin Total 0.1 mg/dL (0.2-1.3); Blood Urea Nitrogen 15 mg/dL (9-20); Calcium 8.6 mg/dL (8.4-10.2); Carbon Dioxide 28 mmol/L (22-32); Chloride 108 mmol/L (98-107); Estimated Glomerular Filt Rate > 60.0 mL/min (>60); Globulin 2.8 g/dL (1.7-4.1); Glucose 101 mg/dL (70-100); HEMOLYSIS < 15 (0-50); Magnesium 1.8 mg/dL (1.6-2.3); Potassium 3.9 mmol/L (3.4-5.1); Sodium 137 mmol/L (137-145)
[2019-12-18 06:51] LABS: Procalcitonin 4.85 ng/mL (<0.5)
--- NOTE | 2019-12-18 07:11 | PM.DS.1 ---
History of Present Illness History of Present Illness Date Patient Seen: 12/17/19 Chief complaint: Vomiting Narrative: Written by myself Dr. Jara: Tahir Trujillo Jr is a 34-year-old male with a past medical history significant for chronic kidney disease stage 3 and opiate abuse who presented to the ED after he was unresponsive in require Narcan to arouse with subsequent nausea and vomiting. The patient reports he was in his usual state health when he took an oxycodone that he got on the street for a ?fun time.? His thought he was talking in his sleep and tried to arouse him when she found he was unarousable she administered nasal Narcan. The patient then became nauseous with severe vomiting and requested 911 to be called as he thought something was wrong. The patient arrived at the ED appeared severely dehydrated with continued nausea with intermittent vomiting. He was initially somnolent with hypotension likely drug-induced and received 4 L of NS boluses total with slow improvement in blood pressure. The patient endorses mild sore throat, mild dull chest pain and epigastric pain. He endorses hot and cold flashes but denies having fever or chills. He has no other symptoms of infection and denies headache, vision changes, rhinitis, nasal congestion, shortness of breath, significant abdominal pain, fever, chills, dysuria, diarrhea or constipation. He has no sick contacts. The patient reports that he has taken street oxycodone which had fentanyl in it previously. He denies IV drug use. Laboratory evaluation demonstrated leukocytosis at 18.8 improved with IV fluid hydration now 14.2 with a elevated procalcitonin of 3.82 and kidney injury with creatinine elevated to 1.8 improved with fluids now 1.55 and normal lactate at 2.1. Patient has mild abdominal pain diffusely but no signs of acute abdomen or localized pain. He has no skin rashes. He is afebrile. The patient does not appear to be infected clinically and no imaging modalities were pursued in ED. If patient continues to have severe abdominal pain with nausea and vomiting plan to consider abdominal imaging. Urinalysis did not appear infected. UDS was negative. Blood cultures drawn and pending. Patient will be admitted as observation for unintentional overdose, severe dehydration and acute kidney injury and plan to monitor for signs of infection and continue IV rehydration with advancement of diet as tolerated. Discharge Providers Provider Date of admission: 12/17/19 08:24 Discharge Date: 12/18/19 Consults: 12/17/19 18:56 Consult to TECHNOLOGIST DEVELOPMENT - [employer] Consultant Routine Comment: TECHNOLOGIST DEVELOPMENT Consult: Substance Abuse Assess Discharge provider: Day Jara DO Summary Hospital Course Discharge Diagnosis: 1. Unintentional overdose, secondary to substance abuse, present on admission. Resolved. 2. Severe dehydration, secondary to nausea and vomiting, present on admission. Resolved. 3. Acute kidney injury on chronic kidney disease stage 3, present on admission. XIOMY resolved. Hospital Course: Tahir Trujillo Jr is a 34-year-old male with a past medical history significant for chronic kidney disease stage 3 and opiate abuse who presented to the ED after he was unresponsive in require Narcan to arouse with subsequent nausea and vomiting. 1. Unintentional overdose, present on admission. Resolved. -Patient took what he believes to be an oxycodone that he got on the street and when his tried to wake him yesterday evening he was unarousable and received Narcan the patient presented with nausea and vomiting. The patient appeared severely dehydrated with mild hypotension and somnolence that are likely drug-induced and improving with IV fluid hydration. -UDS interestingly was negative for opiates, oxycodone and methadone however, this is not a sensitive test and is dependent on dose and metabolism. Salicylate and acetaminophen levels negative. Patient may have possibly received fentanyl or another unknown substance in street drug. -Patient with leukocytosis, which was reactive and due to stress response, initial WBC 18.8 and resolved with IV fluids WBC now 8.3. Procalcitonin was elevated at 3.82 and trending up now 4.85 for unclear reasons? Lactate normal at 2.1. Patient has mild abdominal discomfort diffusely but no signs of acute abdomen or localized pain. No rash. Afebrile. No clincial signs of infection. Urinalysis did not appear infected. UDS was negative. Blood cultures and urine culture have no growth to date. Continued to closely monitor for signs/symptoms of infection, vital signs and telemetry. -Consulted TECHNOLOGIST DEVELOPMENT for CD assessment and appreciate her time and recommendations. 2. Severe dehydration, secondary to nausea and vomiting, present on admission. Resolved. -Received 4 L of NS boluses in the ED. Continued D5 normal saline at 100 mL/hr until able to take in PO intake normally. -Continued Zofran 4 mg every 4 hours as needed for nausea and vomiting and protonix 40 mg daily for GI prophylaxis. -The patient does not appear to be infected clinically and no imaging modalities were pursued in ED. If patient developed severe abdominal pain or recurrence of nausea and vomiting low threshold for abdominal imaging. 3. Acute kidney injury on chronic kidney disease stage 3, present on admission. XIOMY resolved. -Initial creatinine 1.8. Baseline creatinine appears to be between 1.3-1.5. Repeat creatinine down to 1.08 which is likely falsely low due to IV fluid hydration. -Avoid nephrotoxic agents. -Received 4 L of NS boluses in the ED. Continued D5 normal saline at 100 mL/hr until able to take in PO intake normally. -Continued to monitor renal function daily. Exam Vital Signs (past 8 hours): - 12/17/19 23:40 12/18/19 05:00 Temperature 98.7 F 98.0 F Pulse Rate 70 59 L Respiratory Rate 16 16 Blood Pressure 120/72 135/66 Pulse Oximetry 95 95 Oxygen Delivery Method Room Air Oxygen Flow Rate 0 Narrative Exam Narrative: General: Young male sitting in bed and in no acute distress, well-developed, well-nourished, appropriately interactive. HEENT: Normocephalic, atraumatic. External ears without defect. Pupils equal, round, and reactive to light. Anicteric sclerae, moist conjunctivae, and no lid lag. Oropharynx free of erythema and cobble stoning with moist mucosa. Neck: Supple with full range of motion. No jugular venous distension. No bruits. No lymphadenopathy or thyromegaly. Cardiovascular: Regular rate and rhythm without murmurs, rubs, or gallops appreciated Pulmonary: Clear to auscultation bilaterally without crackles, wheezes, or rhonchi. Normal respiratory effort with no use of accessory muscles. Abdomen: Soft, bowel sounds present, mild tenderness diffusely without focal tendeness, mild voluntary guarding, nondistended. No signs of acute abdomen. No hepatosplenomegaly or masses appreciated. Extremities: No clubbing, cyanosis, or edema. Skin: Normal temperature, turgor, and texture; no rash, ulcers, or subcutaneous nodules appreciated. Neurological: Cranial nerves grossly intact. Psychiatric: Mildly withdrawn, normal mood and severely flat affect. Alert and oriented to person, place, and time. Objective Labs Result Diagrams: 12/18/19 06:05 12/18/19 06:05 Labs: Laboratory Results - last 24 hr 12/17/19 12/17/19 12/17/19 04:38 06:35 07:00 WBC RBC Hgb Hct MCV MCH MCHC RDW Plt Count Neut % (Auto) Lymph % (Auto) Stevens % (Auto) Eos % (Auto) Baso % (Auto) Neut # (Auto) Lymph # (Auto) Stevens # (Auto) Eos # (Auto) Baso # (Auto) Sodium Potassium Chloride Carbon Dioxide BUN Creatinine Estimated GFR BUN/Creatinine Ratio Glucose Lactate Calcium Magnesium 2.1 Total Bilirubin AST ALT Alkaline Phosphatase Total Protein Albumin Globulin Albumin/Globulin Ratio Procalcitonin 3.82 H Urine Color Urine Appearance Urine pH Ur Specific Edmond Urine Protein Urine Glucose (UA) Urine Ketones Urine Occult Blood Urine Nitrate Urine Bilirubin Urine Urobilinogen Ur Leukocyte Esterase Urine RBC Urine WBC Amorphous Sediment Urine Bacteria Ur Culture Indicated? Salicylates < 1.0 U Opiates 300ng/mL cut Ur Oxycodone Screen Urine Methadone Screen Acetaminophen < 10 L Ur Barbiturates Screen U Tricyclic Antidepress Ur Phencyclidine Scrn Ur Amphetamines Screen U Methamphetamines Scrn Ur MDMA Scrn (Ecstasy) U Benzodiazepines Scrn Urine Cocaine Screen U Marijuana (THC) Screen 12/17/19 12/17/19 12/17/19 08:11 09:25 09:25 WBC RBC Hgb Hct MCV MCH MCHC RDW Plt Count Neut % (Auto) Lymph % (Auto) Stevens % (Auto) Eos % (Auto) Baso % (Auto) Neut # (Auto) Lymph # (Auto) Stevens # (Auto) Eos # (Auto) Baso # (Auto) Sodium Potassium Chloride Carbon Dioxide BUN Creatinine Estimated GFR BUN/Creatinine Ratio Glucose Lactate 2.1 Calcium Magnesium Total Bilirubin AST ALT Alkaline Phosphatase Total Protein Albumin Globulin Albumin/Globulin Ratio Procalcitonin Urine Color Yellow Urine Appearance Clear Urine pH 5.5 Ur Specific Edmond 1.020 Urine Protein Trace H Urine Glucose (UA) Negative Urine Ketones Negative Urine Occult Blood Trace-lysed Urine Nitrate Negative Urine Bilirubin Negative Urine Urobilinogen 0.2 Ur Leukocyte Esterase Negative Urine RBC None seen Urine WBC 0-1/hpf Amorphous Sediment 2+ Urine Bacteria Occasional (0-1) Ur Culture Indicated? Specimen cultured Salicylates U Opiates 300ng/mL cut Negative Ur Oxycodone Screen Negative Urine Methadone Screen Negative Acetaminophen Ur Barbiturates Screen Negative U Tricyclic Antidepress Negative Ur Phencyclidine Scrn Negative Ur Amphetamines Screen Negative U Methamphetamines Scrn Negative Ur MDMA Scrn (Ecstasy) Negative U Benzodiazepines Scrn Negative Urine Cocaine Screen Negative U Marijuana (THC) Screen Negative 12/18/19 12/18/19 12/18/19 06:05 06:05 06:05 WBC 8.3 RBC 4.10 L Hgb 11.3 L Hct 33.1 L MCV 80.6 MCH 27.5 MCHC 34.0 RDW 14.7 Plt Count 247 Neut % (Auto) 63.0 D Lymph % (Auto) 26.2 D Stevens % (Auto) 7.2 Eos % (Auto) 2.7 Baso % (Auto) 0.9 Neut # (Auto) 5200 Lymph # (Auto) 2200 Stevens # (Auto) 600 Eos # (Auto) 200 Baso # (Auto) 100 Sodium 137 Potassium 3.9 Chloride 108 H Carbon Dioxide 28 BUN 15 Creatinine 1.08 Estimated GFR > 60.0 BUN/Creatinine Ratio 13.9 Glucose 101 H Lactate Calcium 8.6 Magnesium 1.8 Total Bilirubin 0.1 L AST 31 ALT 19 Alkaline Phosphatase 46 Total Protein 6.0 L Albumin 3.2 L Globulin 2.8 Albumin/Globulin Ratio 1.1 Procalcitonin 4.85 H Urine Color Urine Appearance Urine pH Ur Specific [place] Urine Protein Urine Glucose (UA) Urine Ketones Urine Occult Blood Urine Nitrate Urine Bilirubin Urine Urobilinogen Ur Leukocyte Esterase Urine RBC Urine WBC Amorphous Sediment Urine Bacteria Ur Culture Indicated? Salicylates U Opiates 300ng/mL cut Ur Oxycodone Screen Urine Methadone Screen Acetaminophen Ur Barbiturates Screen U Tricyclic Antidepress Ur Phencyclidine Scrn Ur Amphetamines Screen U Methamphetamines Scrn Ur MDMA Scrn (Ecstasy) U Benzodiazepines Scrn Urine Cocaine Screen U Marijuana (THC) Screen Discharge Plan Discharge Plan Patient Disposition: Home Discharge comment: You're being discharged home. You were admitted for observation for unintentional overdose of unknown substance. Please abstain from illicit and recreational drugs indefinitely. You had severe dehydration which led to kidney injury which has now resolved with IV fluid administration. Initially there were concerns for infection however your infectious markers have normalized and no clinical signs of infection. Need to reestablish with primary care providers and be seen regularly, at least once a year for blood work and monitoring of kidneys. Discharge orders & Medications Prescriptions: No Action No Known Home Medications RF: 0 Diet/Activity/Treatments Diet: Regular Activity: Activity as tolerated Visit Report/Discharge Packet Instructions: DI for Drug Overdose in Adults Visit Report Forms: Patient Portal/API, Stroke Signs & Symptoms Discharge Data Attending Provider: Day Jara Admit Date/Time: 12/17/19 08:24 Discharges patient from system. Discharge Date/Time: 12/18/19 11:00 Quality VTE Deep Vein Thrombosis/Pulmonary Embolism Present on Admission: No
[2019-12-18 08:50] VITALS: BP 128/74; PULSE 98; RESP 16; TEMP 36.9; O2SAT 97
[2019-12-18] MEDS: HEPARIN 5,000 UNIT/ML VIAL 5000 UNIT SUBCUT (08:59)
[2019-12-18] MEDS: SODIUM CHLORIDE 0.9% FLUSH 10 ML IV (09:00)
[2019-12-18 09:31] VITALS: O2SAT 98
--- NOTE | 2019-12-18 10:30 | CM.SWNOTE ---
HAT STEAMER Consult Request: This HAT STEAMER received consult request to assess for [place]. Patient is being DC home today. Met w/patient and his in room, introduced SW role. Patient is quiet, pleasant, and suspicious seeming of this HAT STEAMER. If patient was willing to answer a question the answer was very brief. 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 This HAT STEAMER suggested patient/family contact this HAT STEAMER and/automotive production workerPOWER Milligan if any needs/concerns arouse before DC home today. Updated POWER Amado HAT STEAMER
--- NOTE | 2019-12-18 10:53 | PC.NURSE ---
Day shift note: Patient awake, alert, flat affect, quiet, and cooperative. Ambulating independently in the room, no C/O pain, nausea, vomiting or dizziness. VSS and afebrile. Discharge instructions given to patient, discussed importance of establishing care with a primary care provider and follow up as needed. Patient and SO verbalized understanding of instructions. Discharge home via WC with Eloisa CUEVA, accompanied by spouse in stable condition.
--- NOTE | 2019-12-23 17:34 | PC.NURSE ---
Late Entry: NS infusion initiated 12/16 at 9:23, complete 12/16 at 10:23.
== END 2019-12-18 11:00 | disposition home or self-care (01) ==
LOC: ED 07:57 → AC 08:25
PROVIDERS: Admitting Provider Internal Medicine; Emergency Provider Emergency Medicine; Referring Provider Emergency Medicine; Visit Provider Internal Medicine
DX: T40.2X1A Poisoning by other opioids, accidental (unintentional), initial encounter (principal); R11.2 Nausea with vomiting, unspecified; N18.3 Chronic kidney disease, stage 3 (moderate); Y92.003 Bedroom of unspecified non-institutional (private) residence as the place of occurrence of the external cause; E86.0 Dehydration; N17.9 Acute kidney failure, unspecified
CPT/HCPCS: 36415; 51798; 80048; 80053; 80305; 80329; 81001; 82565; 82962; 83605; 83735; 84145; 85025; 87040; 87086; 93005; 96361; 96372; 99284; G0378; G0480; J1644; J2405; J7121